=== PATIENT | female | born 2000 | race Caucasian/White ===

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

== ENCOUNTER 2018-01-18 08:25 | Emergency (ER) | payer OTHER ==
[~2018-01-18] VITALS: Ht 175.3 cm; Wt 63.5 kg
[~2018-01-18 08:25] MED LIST changes: +ACET-8386 PO; -AUGMENTIN 875 M1 TAB PO; -FERROUS SULFAT325 MG PO; -NORCO 5/325 MG1 TAB PO
--- NOTE | 2018-01-18 08:25 | NUR ---
Patient BIBA BLS, transferred to bed 4. RN evaluating patient at bedside.
--- NOTE | 2018-01-18 08:26 | NUR ---
58/F BIBA FROM HOME C/O SYNCOPE, SHE WOKE WITH DIZZINESS, VOMITED 2 TIMES THEN SYNCOPE,IV NS BOLUS GIVEN ENROUTE .BS AT HOME 70 MG% PER EMS. IV LAC 20G. DENIES N/V/D AT THIS TIME; SKIN IS PINK/WARM/DRY; AAOX4 WITH EVEN AND STEADY GAIT; LUNGS CLEAR BL; PT DENIES ANY FEVER, CP, SOB, OR COUGH AT THIS TIME; PATIENT STATES PAIN OF 0/10 AT THIS TIME. PATIENT POSITIONED FOR COMFORT; HOB ELEVATED; BEDRAILS UP X2; BED DOWN. ER MD MADE AWARE OF PT STATUS.
[2018-01-18 08:31] VITALS: BP 119/66
--- NOTE | 2018-01-18 08:42 | NUR ---
EKG AT BEDSIDE Addendum: 01/18/18 at 0848 by MED1 PT STATED" I FEEL DIZZY WHEN I LAY DOWN.
--- NOTE | 2018-01-18 08:48 | NUR ---
Dr. Mendez evaluating patient at bedside.
[2018-01-18] MEDS ORDERED: MECLIZINE 25 MG TAB PO ONE (08:55)
[2018-01-18] MEDS ORDERED: KETOROLAC 30 MG/ML VIAL IVP ONE (08:55)
[2018-01-18] MEDS ORDERED: NACL 0.9% 1,000 ML IV ONE (08:55)
[2018-01-18] MEDS ORDERED: PANTOPRAZOLE 40 MG INJ VIAL IVP ONE (09:05)
[2018-01-18 09:10] LABS: BASOPHILS # (AUTO) 0.1 K/uL (0.00-0.22); BASOPHILS % (AUTO) 0.5 % (0.0-2.0); EOSINOPHILS # (AUTO) 0.5 K/uL (0-0.4); EOSINOPHILS % (AUTO) 4.9 % (0.0-4.0); HEMATOCRIT 36.6 % (36-48); HEMOGLOBIN 11.9 g/dL (12.0-16.0); LYMPHOCYTES # (AUTO) 1.4 K/uL (2.5-16.5); LYMPHOCYTES % (AUTO) 14.8 % (20.5-51.1); MEAN CORPUSCULAR HEMOGLOBIN 25 pg (27-31); MEAN CORPUSCULAR HGB CONC 32 g/dL (33-37); MEAN CORPUSCULAR VOLUME 77.1 fL (80-94); MONOCYTES # (AUTO) 0.5 K/uL (0.8-1.0); MONOCYTES % (AUTO) 5.8 % (1.7-9.3); NEUTROPHILS # (AUTO) 6.9 K/uL (1.8-7.7); PLATELET COUNT (AUTO) 175 K/uL (140-450); RED BLOOD CELL COUNT(AUTO) 4.75 MIL/uL (4.20-5.40); RED CELL DISTRIBUTION WIDTH 15.9 % (11.6-13.7); WHITE BLOOD COUNT (AUTO) 9.4 K/uL (4.5-11.0)
--- NOTE | 2018-01-18 09:10 | NUR ---
MOTHER AT BEDSIDE.
[2018-01-18 09:12] LABS: APPEARANCE,URINE CLEAR (CLEAR); BILIRUBIN,URINE NEGATIVE (NEGATIVE); BLOOD, URINE NEGATIVE (NEGATIVE); COLOR,URINE YELLOW (YELLOW); LEUKOCYTE ESTERASE ,URINE NEGATIVE (NEGATIVE); NITRITE, URINE NEGATIVE (NEGATIVE); PH,URINE 6.5 (5.0-9.0); UGLUCOSE NEGATIVE (NEGATIVE)
--- NOTE | 2018-01-18 09:17 | NUR ---
PT TAKEN TO X RAY VIA GURNEY ACCOMPANIED BY [employer].
[2018-01-18 09:33] LABS: BARBITURATE, URINE NEG. ng/ml (NEG <=200); BENZODIAZEPINE, URINE NEG. ng/mL (NEG <=200); CANNABINOID, URINE NEG. ng/mL (NEG <=50); COCAINE, URINE NEG. ng/mL (NEG <=300); OPIATE, URINE NEG. ng/mL (NEG <=2000); PHENCYCLIDINE SCREEN,URINE NEG. ng/mL (NEG <=25)
[2018-01-18 09:37] LABS: ANION GAP 15.6 (8-16); CARBON DIOXIDE 24.2 mmol/L (21-32); CREATININE 0.7 mg/dL (0.6-1.3); POTASSIUM 3.8 mmol/L (3.5-5.1); TOTAL BILIRUBIN 0.3 mg/dL (0.0-1.0)
[2018-01-18 10:03] LABS: RBC,URINE NONE SEEN /HPF (0-5); WBC,URINE 0-5 (RARE) /HPF (0-5)
[2018-01-18 11:17] VITALS: BP 113/81
--- NOTE | 2018-01-18 11:17 | NUR ---
Patient discharged with v/s stable. Written and verbal after care instructions given and explained. Patient alert, oriented and verbalized understanding of instructions. Ambulatory with steady gait. All questions addressed prior to discharge. ID band removed. Patient advised to follow up with PMD. Rx of PROTONIX given. Patient educated on indication of medication including possible reaction and side effects. Opportunity to ask questions provided and answered.
== END 2018-01-18 11:17 | disposition home or self-care (01) ==
LOC: MED 08:25
DX: R55 Syncope and collapse (principal); R42 Dizziness and giddiness; R11.2 Nausea with vomiting, unspecified; J45.909 Unspecified asthma, uncomplicated
CPT/HCPCS: 36415; 70450; 71045; 80053; 80305; 81001; 81025; 84484; 85025; 85610; 85730; 87086; 93005; 96361; 96374; 96375; 99285; C9113; J1885; J7030; J8597; Q0092

== ENCOUNTER 2018-05-17 22:32 | Emergency (ER) | payer OTHER ==
[~2018-05-17] VITALS: Ht 175.3 cm; Wt 68.0 kg
[2018-05-17 22:36] VITALS: BP 136/87
--- NOTE | 2018-05-17 22:39 | NUR ---
18/ came in w c/o sore throat, lt ear pain, fever, and nasal congestion since saturday. Denies sick contact, SOB/CP, N/V/D. Pt afebrile on arrival. No respiratory distress noted. PMH: asthma, has been taking tylenol without relief
--- NOTE | 2018-05-17 22:39 | NUR ---
Tommie cedillo in [facility] - 05/17/18 at 2239 by AMOS PT TAKEN TO BED 9
--- NOTE | 2018-05-17 22:39 | NUR ---
PT AMBULATED TO BED 9
--- NOTE | 2018-05-17 22:43 | NUR ---
Dr. Magallon evaluating patient at bedside.
--- NOTE | 2018-05-17 22:54 | NUR ---
dPatient discharged with v/s stable. Written and verbal after care instructions given and explained by dr Magallon. Patient alert, oriented and verbalized understanding of instructions. Ambulatory with steady gait. All questions addressed prior to discharge. ID band removed. Patient advised to follow up with PMD. Rx of augmentin given. Patient educated on indication of medication including possible reaction and side effects. Opportunity to ask questions provided and answered.
== END 2018-05-17 22:54 | disposition home or self-care (01) ==
LOC: MED 22:32
DX: H66.92 Otitis media, unspecified, left ear (principal); J02.9 Acute pharyngitis, unspecified; J45.909 Unspecified asthma, uncomplicated; Z79.899 Other long term (current) drug therapy; Z90.49 Acquired absence of other specified parts of digestive tract
CPT/HCPCS: 99283

== ENCOUNTER 2019-04-20 18:20 | Emergency (ER) | payer OTHER ==
[~2019-04-20] VITALS: Ht 154.9 cm; Wt 54.4 kg
[2019-04-20 18:47] VITALS: BP 122/78
--- NOTE | 2019-04-20 18:51 | NUR ---
Patient BIBA BLS, transferred to bed 7. RN evaluating patient at bedside.
--- NOTE | 2019-04-20 19:10 | NUR ---
PT CAME IN FOR SHORTNESS OF BREATH. PT AWAKE ALERT AND CALM. RESPIRATIONS EVEN AND UNLABORED. BREATHE SOUNDS BILATERALLY CLEAR. OXYGEN SATURATION AT 98%. VSS. MED HX: ASTHMA. SAFETY MEASURES IN PLACE. WAITING FOR ERMD TO EVALUATE PT.
[2019-04-20] MEDS ORDERED: predniSONE 20 MG TAB PO ONE (19:45)
--- NOTE | 2019-04-20 20:17 | NUR ---
PT RESTING IN BED EYES OPEN WITH FAMILY AT BEDSIDE. VSS. PER PT SHE STATES SHE FEELS BETTER PAIN LEVEL 0/10.
--- NOTE | 2019-04-20 20:38 | NUR ---
PT AMBULATED TO BATHROOM
[2019-04-20 21:00] VITALS: BP 112/61
--- NOTE | 2019-04-20 21:00 | NUR ---
Patient discharged with v/s stable. Written and verbal after care instructions given and explained. Patient alert, oriented and verbalized understanding of instructions. Ambulatory with steady gait. All questions addressed prior to discharge. ID band removed. Patient advised to follow up with PMD. Rx of ALBUTEROL INH, PREDNISONE given. Patient educated on indication of medication including possible reaction and side effects. Opportunity to ask questions provided and answered.
== END 2019-04-20 21:00 | disposition home or self-care (01) ==
LOC: MED 18:20
DX: J45.901 Unspecified asthma with (acute) exacerbation (principal); Z79.899 Other long term (current) drug therapy
CPT/HCPCS: 71046; 99283; J7512

== ENCOUNTER 2019-08-01 21:51 | Emergency (ER) | payer OTHER ==
[~2019-08-01] VITALS: Ht 175.3 cm; Wt 54.4 kg
[2019-08-01 22:06] VITALS: BP 150/65
--- NOTE | 2019-08-01 22:08 | NUR ---
TO LOBBY A/W BED AMBULATORY
--- NOTE | 2019-08-01 22:33 | NUR ---
19 Y/O FEMALE S/P SLIPPED AND FALL YESTERDAY , WITH LOC FOR 2 MINUTES, AND VOMITTED ONCE (08/01/19) AND HAS NOT VOMITTED SINCE THEN. A/OX4 TO PERSON, PLACE, TIME, DATE. PATIENT STATED, "I FELL FLAT ONTO THE BACK OF MY HEAD; I FEEL KIND OF LIGHT-HEADED". PERRLA +3; NOTED PRESSURE IN EYES. HAND FINISH SANDER STRONG. PAIN IS A 7/10 THROBBING, ACUTE PAIN IN THE BACK OF THE HEAD; TENDER TO PALPATION. NO PAIN MEDICATIONS TAKEN. ERMD MADE AWARE OF STATUS. SIDE RAILSX1. PLACED ON MONITOR. PMH: ANEMIA; ALBUTEROL RX:ALBUTEROL SURGICAL HXl LEFT KNEE PAIN
--- NOTE | 2019-08-01 22:33 | NUR ---
PT. TAKEN TO BED 7.
[2019-08-02 01:30] VITALS: BP 150/65
--- NOTE | 2019-08-02 01:30 | NUR ---
Patient discharged with v/s stable. Written and verbal after care instructions given and explained. Patient verbalized understanding. Ambulatory with steady gait. All questions addressed prior to discharge. Advised to follow up with PMD.
== END 2019-08-02 01:30 | disposition home or self-care (01) ==
LOC: MED 21:51
DX: S09.90XA Unspecified injury of head, initial encounter (principal); R11.2 Nausea with vomiting, unspecified; J45.909 Unspecified asthma, uncomplicated; D64.9 Anemia, unspecified; Z98.890 Other specified postprocedural states; Z79.899 Other long term (current) drug therapy; W01.0XXA Fall on same level from slipping, tripping and stumbling without subsequent striking against object, initial encounter; Y93.89 Activity, other specified; Y92.89 Other specified places as the place of occurrence of the external cause; Y99.8 Other external cause status
CPT/HCPCS: 70450; 81025; 99284

== ENCOUNTER 2019-11-06 14:26 | Emergency (ER) | payer OTHER ==
[~2019-11-06] VITALS: Ht 172.7 cm; Wt 57.6 kg
[2019-11-06 14:29] VITALS: BP 117/69
--- NOTE | 2019-11-06 14:52 | NUR ---
PT SITTING IN LOBBY, LOOKING AT CELLPHONE. NO SIGNS OF DISTRESS.
--- NOTE | 2019-11-06 15:52 | NUR ---
Patient ambulated to bed 6
--- NOTE | 2019-11-06 15:59 | NUR ---
19 Y/O F WITH C/O ASTHMA ATTACK X 2 HR PRIOR TO ARRIVAL. PT USES AN INHALER AT HOME 2-3 TIMES A WEEK FOR HER ASTHMA. PT DID NOT HAVE HER INHALER ON HER TODAY DURING HER ASTHMA ATTACK. PT LUNG SOUNDS CLEAR, OXYGEN LEVEL 100% ROOM AIR. PT DENIES PAIN OR DIFFICULTY BREATHING AT THIS TIME. PT POSITIONED FOR COMFORT, FRIEND AT BEDSIDE. OTTONIEL
--- NOTE | 2019-11-06 16:21 | NUR ---
DR ARRIAZA AT BEDSIDE EXAMINING PATIENT.
[2019-11-06] MEDS ORDERED: DEXAMETHASONE 4 MG/ML VIAL PO ONE (16:25)
--- NOTE | 2019-11-06 16:35 | NUR ---
PT GIVEN ORDERED MEDICATION W/O DIFFICULTY. PT RESTING COMFORTABLY, VSS. OXYGEN LEVEL 100% ROOM AIR. PT FRIEND AT BEDSIDE.
[2019-11-06 16:43] VITALS: BP 117/69
== END 2019-11-06 16:44 | disposition home or self-care (01) ==
LOC: MED 14:26
DX: J45.901 Unspecified asthma with (acute) exacerbation (principal); Z79.899 Other long term (current) drug therapy
CPT/HCPCS: 71045; 99283; J1100

== ENCOUNTER 2019-11-21 06:54 | Emergency (ER) | payer OTHER ==
[~2019-11-21] VITALS: Ht 175.3 cm; Wt 56.7 kg
[2019-11-21 06:59] VITALS: BP 130/82
--- NOTE | 2019-11-21 07:09 | NUR ---
19 Y/O F C/C RIGHT HAND PAIN 06/02 AFTER FALL X 2 DAYS. PT ICED IT AT HOME WITH NO RELIEF. BRUISE NOTED ON PALM OF HAND. DENIES LOC. CMS/ROM WDL. PT NKA. HX ASTHMA. RX ALBUTEROL PRN. NO N/V/D. SIDE RAIL X1. FAMILY AT BEDSIDE.
--- NOTE | 2019-11-21 07:34 | NUR ---
ERMD AT BEDSIDE
[2019-11-21] MEDS ORDERED: IBUPROFEN 800 MG TAB PO ONE (07:40)
--- NOTE | 2019-11-21 07:46 | NUR ---
xray at bedside
--- NOTE | 2019-11-21 08:18 | NUR ---
Dr. Mendez is evaluating the patient at bedside.
--- NOTE | 2019-11-21 08:22 | NUR ---
PT RESTING IN BED, SIDE RAIL X1
[2019-11-21 09:01] VITALS: BP 130/82
== END 2019-11-21 09:01 | disposition home or self-care (01) ==
LOC: MED 06:54
DX: S62.316A Displaced fracture of base of fifth metacarpal bone, right hand, initial encounter for closed fracture (principal); J45.909 Unspecified asthma, uncomplicated; Z79.899 Other long term (current) drug therapy; W19.XXXA Unspecified fall, initial encounter; Y93.89 Activity, other specified; Y92.89 Other specified places as the place of occurrence of the external cause; Y99.8 Other external cause status
CPT/HCPCS: 73130; 99283

== ENCOUNTER 2020-02-29 15:07 | Emergency (ER) | payer OTHER ==
[~2020-02-29] VITALS: Ht 177.8 cm; Wt 52.2 kg
[2020-02-29 15:16] VITALS: BP 136/93
--- NOTE | 2020-02-29 15:16 | NUR ---
PT WHEELCHAIR ASSISTED TO BED 11
--- NOTE | 2020-02-29 15:20 | NUR ---
20 Y/O FEMALE FROM HOME C/O LT KNEE PAIN [place]. STATES SHE FELT A POP AND HAS 6/10 PAIN. PMH OF LT KNEE SURGERY. SLIGHT SWELLING TO MEDIAL ASPECT OF KNEE. INCREASED PAIN WITH AMBULATION. PT WALKING WITH LIMP. SKIN WARM AND DRY. VSS MEDHX: ASTHMA ALLERGIES: NKA
--- NOTE | 2020-02-29 15:21 | NUR ---
[facility] AT BEDSIDE EXAMINING PT
--- NOTE | 2020-02-29 15:27 | NUR ---
PT AMBULATED WITH LIMPING GAIT TO RESTROOM
--- NOTE | 2020-02-29 15:40 | NUR ---
X-Ray at bedside.
--- NOTE | 2020-02-29 16:07 | NUR ---
Patient discharged with v/s stable. Written and verbal after care instructions given and explained. Patient alert, oriented and verbalized understanding of instructions. Ambulatory with steady gait. All questions addressed prior to discharge. ID band removed. Patient advised to follow up with PMD. Rx of NORCO 5MG-325MG given. Patient educated on indication of medication including possible reaction and side effects. Opportunity to ask questions provided and answered.
--- NOTE | 2020-02-29 16:07 | NUR ---
LT KNEE IMMOBILIZER PLACED BY LOLA, FRANCIA. +PULSES, SKIN WARM AND DRY AFTER PLACEMENT.
[2020-02-29 16:08] VITALS: BP 136/93
== END 2020-02-29 16:07 | disposition home or self-care (01) ==
LOC: MED 15:07
DX: S83.92XA Sprain of unspecified site of left knee, initial encounter (principal); J45.909 Unspecified asthma, uncomplicated; Z90.49 Acquired absence of other specified parts of digestive tract; Z79.899 Other long term (current) drug therapy; X50.1XXA Overexertion from prolonged static or awkward postures, initial encounter; Y93.89 Activity, other specified; Y92.832 Beach as the place of occurrence of the external cause; Y99.8 Other external cause status
CPT/HCPCS: 29505; 73562; 81025; 99283; Q0092; 29515

== ENCOUNTER 2020-07-17 21:29 | Emergency (ER) | payer OTHER ==
[~2020-07-17] VITALS: Ht 177.8 cm; Wt 63.5 kg
[2020-07-17 21:44] VITALS: BP 121/77
--- NOTE | 2020-07-17 21:56 | NUR ---
taken to bed 04
[2020-07-17] MEDS ORDERED: HYDROcodone/APAP 5/325 MG 1 TAB TAB PO ONE (22:00)
--- NOTE | 2020-07-17 22:00 | NUR ---
20 year female coming in for left elbow pain s/p mechanical bull fall last night at a family green party. states fell on a padded ground. ROM 4/5, CMS inctact. noted swelling on left lateral side of the left elbow. no other s/sx. denies any other injury or trauma. pmhx: anemia, appendectomy, left knee repair nka
[2020-07-17] MEDS ORDERED: HYDROcodone/APAP 5/325 MG 1 TAB TAB ONE (22:01)
[2020-07-17 22:06] VITALS: BP 123/80
--- NOTE | 2020-07-17 22:12 | NUR ---
xray at bedside.
--- NOTE | 2020-07-17 22:25 | NUR ---
Dr. Horner at bedside.
== END 2020-07-17 23:05 | disposition home or self-care (01) ==
LOC: MED 21:29
DX: S53.402A Unspecified sprain of left elbow, initial encounter (principal); J45.909 Unspecified asthma, uncomplicated; Z98.890 Other specified postprocedural states; Z90.49 Acquired absence of other specified parts of digestive tract; Z79.899 Other long term (current) drug therapy; X58.XXXA Exposure to other specified factors, initial encounter; Y93.89 Activity, other specified; Y92.89 Other specified places as the place of occurrence of the external cause; Y99.8 Other external cause status
CPT/HCPCS: 73080; 81025; 99283; Q0092

== ENCOUNTER 2021-01-10 11:43 | Emergency (ER) | payer OTHER ==
[~2021-01-10] VITALS: Ht 175.3 cm; Wt 63.5 kg
--- NOTE | 2021-01-10 11:54 | NUR ---
Patient ambulated to bed 2. RN evaluating the patient at bedside.
[2021-01-10 12:00] VITALS: BP 128/70
--- NOTE | 2021-01-10 12:07 | NUR ---
20 Y/O F BIB SELF FROM HOME, C/O HEADACHE RADIATES TO NECK THAT STARTED 2 WEEKS AGO AFTER 2ND DOSE OF PFIZER. PT HAS BEEN TAKING MEDS TO HELP WITH PAIN, NO RELIEF. DENIES N/V/D. DENIES BLURRY VISION, LOC AND SYNCOPE. DENIES SOB, CP, FEVER AND COUGH. TESTED + FOR COVID IN JULY 2020. LMP: 01/04/21 PMH: ASTHMA NKA MED: EXCEDRIN 250 2 TAB (LAST DOSE YESTERDAY)
[2021-01-10] MEDS ORDERED: METOCLOPRAMIDE 10 MG TAB PO ONE (12:30)
[2021-01-10] MEDS ORDERED: PROCHLORPERAZINE 5 MG TAB PO ONE (12:30)
[2021-01-10] MEDS ORDERED: KETOROLAC 30 MG/ML VIAL IM ONE (12:30)
[2021-01-10 14:31] LABS: BASOPHILS # (AUTO) 0.1 K/uL (0.00-0.22); BASOPHILS % (AUTO) 0.9 % (0.0-2.0); EOSINOPHILS # (AUTO) 0.1 K/uL (0-0.4); EOSINOPHILS % (AUTO) 1.4 % (0.0-4.0); HEMATOCRIT 32.7 % (36-48); HEMOGLOBIN 10.2 g/dL (12.0-16.0); LYMPHOCYTES # (AUTO) 1.9 K/uL (2.5-16.5); LYMPHOCYTES % (AUTO) 27.5 % (20.5-51.1); MEAN CORPUSCULAR HEMOGLOBIN 22 pg (27-31); MEAN CORPUSCULAR HGB CONC 31 g/dL (33-37); MEAN CORPUSCULAR VOLUME 70.6 fL (80-94); MONOCYTES # (AUTO) 0.5 K/uL (0.8-1.0); MONOCYTES % (AUTO) 7.3 % (1.7-9.3); NEUTROPHILS # (AUTO) 4.4 K/uL (1.8-7.7); NEUTROPHILS % (AUTO) 62.9 % (42.2-75.2); PLATELET COUNT (AUTO) 283 K/uL (140-450); RED BLOOD CELL COUNT(AUTO) 4.63 MIL/uL (4.20-5.40); RED CELL DISTRIBUTION WIDTH 17.8 % (11.6-13.7); WHITE BLOOD COUNT (AUTO) 7.1 K/uL (4.8-10.8)
--- NOTE | 2021-01-10 14:40 | NUR ---
18 G IV ESTABLISHED ON R AC, CT CONSENT OBTAINED, CALLED TO [facility] PT
[2021-01-10 14:56] LABS: ALBUMIN 4.4 g/dL (3.4-5.0); ANION GAP 11.7 (8-16); CARBON DIOXIDE 26.3 mmol/L (21-32); CREATININE 0.7 mg/dL (0.6-1.3); TOTAL BILIRUBIN 0.5 mg/dL (0.0-1.0)
[2021-01-10] MEDS ORDERED: MORPHINE SULFATE 4 MG/ML SYR IVP ONE (15:50)
[2021-01-10] MEDS ORDERED: IBUP-2213 PO (16:17)
[2021-01-10] MEDS ORDERED: ACET-8386 PO (16:17)
--- NOTE | 2021-01-10 16:52 | NUR ---
Patient discharged with v/s stable. Written and verbal after care instructions given and explained. Patient alert, oriented and verbalized understanding of instructions. Ambulatory with steady gait. All questions addressed prior to discharge. ID band removed. Patient advised to follow up with PMD. Rx of HYDROCODONE, IBUPROFEN given. Patient educated on indication of medication including possible reaction and side effects. Opportunity to ask questions provided and answered.
[2021-01-10 16:53] VITALS: BP 128/70
== END 2021-01-10 16:52 | disposition home or self-care (01) ==
LOC: MED 11:43
DX: R51.9 Headache, unspecified (principal); H53.149 Visual discomfort, unspecified
CPT/HCPCS: 36415; 70470; 80053; 81025; 85025; 96372; 96374; 99285; J1885; J2270; Q0164; Q9967

== ENCOUNTER 2021-03-22 16:17 | Emergency (ER) | payer OTHER ==
[~2021-03-22] VITALS: Ht 177.8 cm; Wt 61.7 kg
[~2021-03-22 16:17] MED LIST changes: +IBUP-2213 PO
[2021-03-22 16:28] VITALS: BP 126/73
[2021-03-22] MEDS ORDERED: ALBU0.0912 IH (16:58)
[2021-03-22] MEDS ORDERED: LORA10TA19 PO (16:58)
--- NOTE | 2021-03-22 17:10 | NUR ---
Patient c/o asthma attack last night also c/o dull chest pain secondary to cough. Patient denies SOB. PMH: Asthma NKA Rx: denies
[2021-03-22 17:16] VITALS: BP 126/73
--- NOTE | 2021-03-22 17:16 | NUR ---
Patient discharged with v/s stable. Written and verbal after care instructions given and explained. Patient alert, oriented and verbalized understanding of instructions. Ambulatory with steady gait. All questions addressed prior to discharge. ID band removed. Patient advised to follow up with PMD. Rx of ALBUTEROL SULFATE, LORATADINE given. Patient educated on indication of medication including possible reaction and side effects. Opportunity to ask questions provided and answered.
== END 2021-03-22 17:16 | disposition home or self-care (01) ==
LOC: MED 16:17
DX: T78.49XA Other allergy, initial encounter (principal); Z76.0 Encounter for issue of repeat prescription; Z90.49 Acquired absence of other specified parts of digestive tract; J45.909 Unspecified asthma, uncomplicated; Z98.890 Other specified postprocedural states; Z79.899 Other long term (current) drug therapy; Z79.891 Long term (current) use of opiate analgesic; Z79.51 Long term (current) use of inhaled steroids; Z79.1 Long term (current) use of non-steroidal anti-inflammatories (NSAID); X58.XXXA Exposure to other specified factors, initial encounter
CPT/HCPCS: 99282; 99283

== ENCOUNTER 2021-04-24 15:49 | Emergency (ER) | payer OTHER ==
[~2021-04-24] VITALS: Ht 175.3 cm; Wt 62.6 kg
[~2021-04-24 15:49] MED LIST changes: +ALBU0.0912 IH; +LORA10TA19 PO
--- NOTE | 2021-04-24 16:46 | NUR ---
Tommie cedillo in [facility] - 04/24/21 at 1932 by MED1 PT TAKEN TO [facility] FOR LAB DRAW.
[2021-04-24 17:02] VITALS: BP 139/90
--- NOTE | 2021-04-24 17:05 | NUR ---
PT TO LOBBY.
--- NOTE | 2021-04-24 17:06 | NUR ---
21 FEMALE WITH C/O OF VAGINAL BLEEDING SINCE THIS AM. PT STATES "SHE WAS 13 DAYS LATE ON HER PERIOD AND TOOK 3 PREGNANY TEST, 1 YESTERDAY AND TOOK 2 ON SATURDAY, ALL OF WHICH CAME BACK POSITIVE." PT STATES SHE IS EXPERICING ABD CRAMPING THAT HAS INCREASED THROUGHOUT THE DAY. DENIES ANY PAIN AT THIS TIME. PMH: ASTHMA NKA
[2021-04-24 17:24] LABS: BASOPHILS % (AUTO) 0.6 % (0.0-2.0); EOSINOPHILS # (AUTO) 0.2 K/uL (0-0.4); EOSINOPHILS % (AUTO) 2.2 % (0.0-4.0); HEMATOCRIT 41.3 % (36-48); HEMOGLOBIN 13.6 g/dL (12.0-16.0); LYMPHOCYTES # (AUTO) 1.6 K/uL (2.5-16.5); LYMPHOCYTES % (AUTO) 18.3 % (20.5-51.1); MEAN CORPUSCULAR HEMOGLOBIN 27 pg (27-31); MEAN CORPUSCULAR HGB CONC 33 g/dL (33-37); MEAN CORPUSCULAR VOLUME 80.5 fL (80-94); MONOCYTES # (AUTO) 0.6 K/uL (0.8-1.0); NEUTROPHILS # (AUTO) 6.4 K/uL (1.8-7.7); NEUTROPHILS % (AUTO) 71.9 % (42.2-75.2); PLATELET COUNT (AUTO) 205 K/uL (140-450); RED BLOOD CELL COUNT(AUTO) 5.13 MIL/uL (4.20-5.40); RED CELL DISTRIBUTION WIDTH 23.3 % (11.6-13.7); WHITE BLOOD COUNT (AUTO) 8.9 K/uL (4.8-10.8)
[2021-04-24 17:42] LABS: APPEARANCE,URINE CLEAR (CLEAR); BILIRUBIN,URINE NEGATIVE (NEGATIVE); BLOOD, URINE 2+ (NEGATIVE); COLOR,URINE YELLOW (YELLOW); LEUKOCYTE ESTERASE ,URINE NEGATIVE (NEGATIVE); NITRITE, URINE NEGATIVE (NEGATIVE); PH,URINE 8.5 (5.0-9.0); UGLUCOSE NEGATIVE (NEGATIVE)
--- NOTE | 2021-04-24 17:46 | NUR ---
PT TAKEN TO [facility] FOR LAB DRAW.
[2021-04-24 18:25] LABS: RBC,URINE 11-20 (MOD) /HPF (0-5); WBC,URINE 0-5 /HPF (0-5)
[2021-04-24 19:30] VITALS: BP 126/79
== END 2021-04-24 19:31 | disposition home or self-care (01) ==
LOC: MED 15:49
DX: O20.0 Threatened abortion (principal); J45.909 Unspecified asthma, uncomplicated
CPT/HCPCS: 36415; 76817; 81001; 81025; 84702; 85025; 86900; 86901; 99284

== ENCOUNTER 2021-04-25 02:05 | Emergency (ER) | payer OTHER ==
[~2021-04-25] VITALS: Ht 175.3 cm; Wt 62.6 kg
[2021-04-25 02:25] VITALS: BP 129/78
--- NOTE | 2021-04-25 02:28 | NUR ---
TO LOBBY A/W BED AMBULATORY
--- NOTE | 2021-04-25 02:38 | NUR ---
Tommie cedillo in [facility] - 04/25/21 at [address] Sanchez examining patient.
--- NOTE | 2021-04-25 02:46 | NUR ---
PT TAKEN TO BED 7
--- NOTE | 2021-04-25 02:50 | NUR ---
COVERING PRIMARY RN FOR LUNCH RELIEF. SEE COMPLETE ASSESSMENT
--- NOTE | 2021-04-25 02:57 | NUR ---
LAB AT BEDSIDE FOR BLOOD DRAW
[2021-04-25 03:08] LABS: BASOPHILS % (AUTO) 0.5 % (0.0-2.0); EOSINOPHILS # (AUTO) 0.2 K/uL (0-0.4); EOSINOPHILS % (AUTO) 2.3 % (0.0-4.0); HEMATOCRIT 39.5 % (36-48); LYMPHOCYTES # (AUTO) 1.9 K/uL (2.5-16.5); LYMPHOCYTES % (AUTO) 21.4 % (20.5-51.1); MEAN CORPUSCULAR HEMOGLOBIN 27 pg (27-31); MEAN CORPUSCULAR HGB CONC 33 g/dL (33-37); MEAN CORPUSCULAR VOLUME 80.8 fL (80-94); MONOCYTES # (AUTO) 0.7 K/uL (0.8-1.0); MONOCYTES % (AUTO) 7.6 % (1.7-9.3); NEUTROPHILS % (AUTO) 68.2 % (42.2-75.2); PLATELET COUNT (AUTO) 190 K/uL (140-450); RED BLOOD CELL COUNT(AUTO) 4.89 MIL/uL (4.20-5.40); RED CELL DISTRIBUTION WIDTH 23.3 % (11.6-13.7); WHITE BLOOD COUNT (AUTO) 8.8 K/uL (4.8-10.8)
[2021-04-25 03:18] LABS: ANION GAP 12.3 (8-16); CARBON DIOXIDE 27.5 mmol/L (21-32); CREATININE 0.6 mg/dL (0.6-1.3); POTASSIUM 3.8 mmol/L (3.5-5.1)
--- NOTE | 2021-04-25 03:35 | NUR ---
NO NURSING INTERVENTIONS NEEDED.
--- NOTE | 2021-04-25 04:02 | NUR ---
FANNIE AGUILAR AT BEDSIDE
[2021-04-25 04:49] VITALS: BP 129/78
== END 2021-04-25 04:49 | disposition home or self-care (01) ==
LOC: MED 02:05
DX: O20.0 Threatened abortion (principal); Z3A.01 Less than 8 weeks gestation of pregnancy
CPT/HCPCS: 36415; 80048; 84702; 85025; 86886; 86900; 86901; 99283